=== PATIENT | male | born 1995 | race Caucasian/White ===

== ENCOUNTER → 2019-08-21 | Outpatient (CLI) | payer OTHER ==
--- NOTE | 2019-08-25 19:38 | MRI ---
EXAM DESCRIPTION: Brain w/wo Contrast: Magnetic Resonance Imaging. CLINICAL HISTORY: 23 years Male 4TH NERVE PALSY COMPARISON: None. TECHNIQUE: Multiplanar, high-field MRI, multiple conventional sequences, without and with gadolinium IV contrast. No adverse reactions. Multiple axial diffusion sequences. FINDINGS: Multiple hyperintense punctate foci of FLAIR and T2-weighted signal in the periventricular white matter bilateral cerebral hemispheres including temporal lobe as well as bilateral corpus callosum and subcortical white matter above the ventricles predominantly right frontal parietal and occipital lobes. Fewer lesions on the left. A punctate lesion in the left occipital lobe periventricular white matter at the level of the posterior ventricle, the lesion abutting the left occipital horn of the lateral ventricle demonstrate contrast enhancement. Lesion in the right side of the anterior body of the corpus callosum enhances. No mass effect, no hemorrhage, and no cerebral edema. Diffusion restriction is noted within a subcortical white matter lesion in the right frontal lobe, and in the enhancing lesion in the periventricular white matter abutting the occipital region of the posterior left lateral ventricle. Large hyperintense FLAIR and T2 lesion in the periventricular white matter right temporal lobe abutting the temporal horn, without enhancement or diffusion restriction. Normal signal in the bilateral basal ganglia. No hemorrhage, no cerebral edema, no mass-effect. Normal contrast enhancement. Small hyperintense T2 focus in the right josey. No diffusion restriction or enhancement. Diffusion restriction in the midline right cerebellar hemisphere abutting the right fourth ventricle. This hyperintense FLAIR and T2 lesion does not enhance. 3 bilateral cerebellar hemisphere hyperintense foci without enhancement. More ill-defined lesion with enhancement and diffusion restriction at the interface between the left cerebral hemisphere and the upper left tonsil on the medial base of the left superior cerebellar peduncle Cortical sulci, ventricles, and other CSF spaces, and the subdural spaces are normally configured for patients age. No effacement or displacement. No midline shift. No extra-axial hemorrhage. Periventricular lesions as previously described, minimal lesion enhancement. Normal flow signal void in the major vessels of the habematolel Parekh, and the venous sinuses. IACs are symmetric bilaterally. Normal signal bilaterally mastoid air cells. No mass effect in the bilateral Cerebellopontine angles. Normal contrast enhancement. Pituitary gland occupies most of the sella. Normal contrast enhancement. Base of the cerebellar tonsils is above the foramen magnum. No significant abnormalities in the paranasal sinuses. The bony calvarium is intact. IMPRESSION: 1. Multiple focal punctate lesions in the periventricular white matter bilaterally, subcortical white matter corpus callosum, and bilateral cerebellar hemispheres. One small right josey lesion. A few of the lesions are enhancing in a few of these lesions show diffusion restriction. No significant cerebral edema, no hemorrhage, and no mass effect. These lesions most likely represent multiple sclerosis, with acute lesions showing enhancement and sporadic diffusion restriction. Nonenhancing lesions or more chronic. Differential includes ADEM, diffuse infection or inflammatory process with immunosuppressive process, embolic infection or vascular disease, or vasculitis. Unlikely primary NURSE CASE MANAGER lymphoma. Electronically signed by: Carlin Lira MD 08/25/2019 7:37 PM [facility]
== END ==
LOC: YCFC.O 10:54
PROVIDERS: ATTEND Family Medicine
DX: H49.12 Fourth [trochlear] nerve palsy, left eye (principal); R90.82 White matter disease, unspecified

== ENCOUNTER → 2020-03-17 | Outpatient (CLI) | payer BC ==
--- NOTE | 2020-03-18 12:05 | RAD ---
EXAM DESCRIPTION: Chest,2 Views CLINICAL HISTORY: 24 years Male, DYSPNEA ON EXERTION COMPARISON: None. TECHNIQUE: 2 view radiograph of the chest. IMPRESSION: Borderline large cardiac silhouette. Aorta is partially calcified. Low inspiratory volume which can accentuate the pulmonary markings. There is bilateral perihilar fullness which may represent vascular crowding versus vascular congestion or bronchitis. Additionally, linear opacities in the left greater than right lung bases may represent areas of subsegmental atelectasis. No pleural effusion or pneumothorax. Included osseous structures intact. Electronically signed by: Liu Bach MD 03/18/2020 12:03 PM CDT
== END ==
LOC: LAB.O 10:16
PROVIDERS: ATTEND Family Medicine
DX: R06.09 Other forms of dyspnea (principal); I70.0 Atherosclerosis of aorta; R91.8 Other nonspecific abnormal finding of lung field; E55.9 Vitamin D deficiency, unspecified; R53.83 Other fatigue

== ENCOUNTER → 2020-03-19 | Outpatient (CLI) | payer BC ==
[~2020-03-19] MED LIST: ALBUTEROL SULFATE 2.5 MG/3 ML VIAL NEB ONE
== END ==
LOC: RESP 09:52
PROVIDERS: ATTEND Family Medicine
DX: R06.09 Other forms of dyspnea (principal)
CPT/HCPCS: 94060; J7611

== ENCOUNTER → 2020-03-31 | Outpatient (CLI) | payer BC ==
--- NOTE | 2020-03-31 13:20 | RAD ---
4 radiographs left knee. 4 radiographs right knee.. Indication: KNEE PAIN Comparison: None. Impression: Mild narrowing bilateral medial knee compartments. No subchondral sclerosis or cystic change. No acute fracture or malalignment of either knee. Tiny bilateral effusions. Electronically signed by: Omar Kramer MD 03/31/2020 1:19 PM CDT
== END ==
LOC: YCFC.O 11:43
PROVIDERS: ATTEND Family Medicine
DX: M25.861 Other specified joint disorders, right knee (principal); M25.862 Other specified joint disorders, left knee; M25.461 Effusion, right knee; M25.462 Effusion, left knee; M62.81 Muscle weakness (generalized)

== ENCOUNTER → 2020-05-04 | Outpatient (CLI) | payer BC ==
--- NOTE | 2020-05-04 12:10 | RAD ---
EXAM DESCRIPTION: Pelvis CLINICAL HISTORY: HIP PAIN RIGHT AND LEFT COMPARISON: None. TECHNIQUE: AP pelvis FINDINGS: I see no bone joint or soft tissue abnormality. IMPRESSION: Normal pelvis. Electronically signed by: Eddie Mendes MD 05/04/2020 12:09 PM CDT
== END ==
LOC: RAD 08:31
PROVIDERS: ATTEND Orthopaedic Surgery
DX: M25.551 Pain in right hip (principal); M25.552 Pain in left hip

== ENCOUNTER → 2020-09-15 | Outpatient (CLI) | payer BC | LOC: YCFC.O 12:37 | PROVIDERS: ATTEND Family Medicine | DX: G35 Multiple sclerosis (principal); R53.83 Other fatigue; M62.81 Muscle weakness (generalized) ==